=== PATIENT | male | born 1965 | race Caucasian/White ===

== ENCOUNTER 2017-05-16 02:50 | Emergency (ER) | payer MEDICAID ==
[~2017-05-16] VITALS: Ht 177.8 cm; Wt 86.4 kg
[2017-05-16 03:25] VITALS: BP 190/109; PULSE 70; RESP 16; TEMP 97.7; O2SAT 99
[2017-05-16] MEDS ORDERED: DICL0.1S LEFT EYE (03:51)
[2017-05-16] MEDS ORDERED: DIAZ10 PO (03:56)
[2017-05-16] MEDS ORDERED: SERO200T PO (03:56)
[2017-05-16] MEDS ORDERED: QUET400XR PO (03:56)
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
== END 2017-05-16 04:51 | disposition home or self-care (01) ==
LOC: NEPD 02:50
DX: H20.00 Unspecified acute and subacute iridocyclitis (principal); F20.9 Schizophrenia, unspecified; Z76.0 Encounter for issue of repeat prescription; Z79.899 Other long term (current) drug therapy
CPT/HCPCS: 99284